=== PATIENT | female | born 1950 | race Caucasian/White ===

== ENCOUNTER 2025-02-26 15:42 | Emergency (ER) | payer OTHER, MEDICARE ==
[~2025-02-26] VITALS: Ht 157.5 cm; Wt 79.6 kg
[2025-02-26 17:15] VITALS: BP 145/86
== END 2025-02-26 17:17 | disposition home or self-care (01) ==
LOC: ED 15:42
DX: S90.31XA Contusion of right foot, initial encounter (principal); J44.9 Chronic obstructive pulmonary disease, unspecified; W20.8XXA Other cause of strike by thrown, projected or falling object, initial encounter
CPT/HCPCS: 73630; 99283